=== PATIENT | male | born 1940 | race Caucasian/White ===

== ENCOUNTER 2019-12-30 18:44 | Observation (INO) | payer MEDICARE, SELFPAY ==
--- NOTE | ~2019-12-30 | XR_ITS ---
EXAMINATION: XR UGI w small bowel DATE: 01/01/2020 10:32 INDICATION: Abdominal pain. Small bowel thickening on outside institution CT. TECHNIQUE: The patient drank thick barium, gas-producing crystals, and thin barium. Conventional supi ne abdomen radiographs and fluoroscopic spot radiographs of the esophagus, stomach, and proximal smal l bowel were obtained. Additional overhead radiographs were obtained during the transit through the s mall bowel. Spot fluoroscopic images of the small bowel were obtained upon contrast reaching the cec um. Fluoroscopy exposure time was 0.8 minutes. A total of 678 fluoroscopic images and 6 overhead radi ographs were obtained. COMPARISON: None. FINDINGS: The esophagus is normal without mass or stricture. Esophageal motility is normal. Postoperative rodriges e of prior partial gastrectomy. There is no hiatal hernia. Prompt emptying across the gastrojejunal a nastomosis. There was no gastroesophageal reflux with provocative maneuvers. Transit time from the st omach to proximal colon was approximately 2 hours. There is normal caliber and mucosal fold pattern t hroughout the small bowel. Terminal ileum is normal. IMPRESSION: 1. Postoperative change of prior partial gastrectomy. 2. Normal small bowel follow-through with normal mucosal fold pattern. Reviewed, dictated and finalized at location A.
--- NOTE | 2019-12-30 18:59 | ADMGEN ---
This patient, Boston Wolf, was admitted to 2 Medical Room 240-01. Patient/family oriented to hospital policies and general routines including ID bracelet, bed and alarms, visiting hours, pain management, procedures, bathroom and other care routines, personal items, smoking policy, room service/diet, and visiting hours. Valuables list has been completed. Information on how to activate the Rapid Response Team has been discussed. Patient/Family are encouraged to report perceived risks to care and to ask questions if they do not understand what they are told or what they should do.
[2019-12-30 19:26] VITALS: BMI 22.1
[2019-12-30 19:27] VITALS: BP 137/62; PULSE 115; RESP 28; TEMP 37.4; O2SAT 100
[2019-12-30 22:00] VITALS: BP 140/51; PULSE 98; RESP 22; TEMP 37; O2SAT 99
[2019-12-31] VITALS (8 sets, daily range): BP systolic 114–135; BP diastolic 55–59; PULSE 76–98; RESP 14–18; TEMP 36.4–37.1; O2SAT 93–99
--- NOTE | 2019-12-31 03:55 | PM.IMHP ---
H&P: HPI History of Present Illness Chief complaint: Abdominal pain Narrative: Date and time of patient contact: 12/31/2019 at 3:00 a.m. Boston Wolf is a 78 year old male with a past medical history of hypertension, chronic tobacco abuse and emphysema who presented to the ER at [facility] in [place] due to severe abdominal pain. The patient reports that the pain occurred approximately 30 minutes after he had eaten. The pain was generalized and radiated down to his testicles bilaterally. However the pain was worse in the left periumbilical region. He required 2 doses of Dilaudid and a dose of fentanyl at the outside facility prior to relief of symptoms. His pain was a 10/10 in intensity and aching in nature. He had never had pain like this before. It was not accompanied by any nausea, vomiting or changes in bowel habits. He had not been having any fevers or chills per his report. His temperature at the outside facility was 100.1. He does have a chronic smoker's cough with a slight increase in his cough due to postnasal drip. He denies any increased shortness of breath from baseline. He has not had any recent ill contacts to his knowledge. 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 The patient denies any symptoms of claudication or cold extremities. He was noted to have some mild renal failure on outside labs with a creatinine of 1.8. He denies any history of renal failure. He denies a history of BPH but does get up every 2 hours to urinate at night. He denies any weak stream or decreased urine output. He has not noticed any dark urine or hematuria. Currently is abdominal pain is 0/10 in intensity and LEs is abdomen is palpated. He is still having some moderate tenderness to palpation in the left periumbilical region and left lower abdomen. Review of Systems Review of Systems: Narrative: 12 systems were reviewed with pertinent positives and negatives per HPI. Except as documented in the HPI, all other systems were reviewed and are negative. [facility] Past Medical History Medical History (Updated 12/31/19 @ 05:12 by Inez Brewer DO) Emphysema lung Essential hypertension Gastric ulcer 1977 Right cataract Maturing Tobacco abuse disorder Surgical History Surgical History (Updated 12/31/19 @ 05:04 by Inez Brewer DO) History of appendectomy History of colonoscopy with polypectomy March 2018 History of left cataract extraction History of partial gastrectomy 1977 due to gastric ulcer Leg fracture, right approx 2010: ORIF Family History Family History (Updated 12/31/19 @ 05:05 by Inez Brewer DO) Sibling Rectal cancer sister Father Alcoholism Sibling , His brother had coronary artery disease and of complications of treatment of post coronary artery disease resulting in liver and kidney failure. Acute myocardial infarction Heart disease Kidney failure Liver failure Social History Social History (Updated 12/31/19 @ 05:10 by Inez Brewer DO) Social History: He has 8 siblings. Six of his siblings are still alive any reports there and relatively good health. He had a sister who of rectal cancer brother who of coronary artery disease leading to liver and kidney failure. Primary care physician: Dr. Sunny Mcgovern Code status: When asked about code status the patient stated, ?Do whatever you think is correct.? Subsequently the patient has been placed as a full code. Smoking packs per day: 1 Smoking cigarettes per day: 20.0 Year
[2019-12-31] MEDS: SODIUM CHLORIDE 0.9% IV 1,000 ML 999 ML IV CONT (04:19)
[2019-12-31 04:37] LABS: Basophils Percent Auto 0.2 % (0.2-1.2); Eosinophils Absolute Auto 0.1 K/mm3 (0-0.3); Eosinophils Percent Auto 0.5 % (0-4.4); Hematocrit 31.4 % (42.0-52.0); Hemoglobin 10.1 g/dL (14.0-18.0); Immature Granulocyte Percent A 0.6 % (0-0.5); Lymphocytes Absolute Auto 1.18 K/mm3 (0.9-3.2); Lymphocytes Percent Auto 7.1 % (18.3-44.2); Mean Corpuscular HGB Conc 32.2 g/dl (32-36); Mean Corpuscular Hemoglobin 28.9 pg (26-34); Mean Corpuscular Volume 89.7 fl (80-100); Mean Platelet Volume 10.1 fl (7.4-10.4); Monocytes Percent Auto 5.9 % (2.6-8.5); Neutrophils Absolute Auto 14.4 K/mm3 (1.3-6.7); Neutrophils Percent Auto 85.7 % (45.5-73.1); Platelet Count Result 246 k/mm3 (150-375); Red Cell Distribution Width 15.3 % (11.5-14.5); White Blood Count 16.7 K/mm3 (4.5-10.0)
[2019-12-31 04:48] LABS: Alanine Aminotransferase 11 U/L (4-50); Albumin Level 2.8 g/dL (3.5-5.1); Alkaline Phosphatase 51 U/L (38-126); Aspartate Amino Transferase 13 U/L (17-59); Bilirubin,Total 0.3 mg/dL (0.2-1.3); Blood Urea Nitrogen 31 mg/dL (9-20); Calcium 7.6 mg/dL (8.4-10.2); Carbon Dioxide 23 mmol/L (22-30); Chloride 109 mmol/L (98-107); Estimated CRCL calculation 43 ml/min; Estimated Glomerular Filt Rate 54; Glucose 101 mg/dL (75-110); Potassium 4.5 mmol/L (3.4-5.0); Sodium 135 mmol/L (137-145)
[2019-12-31 04:49] LABS: Lactic Acid Reflex 0.8 mmol/L (0.7-2.1)
[2019-12-31] MEDS: SODIUM CHLORIDE 0.9% IV 1,000 ML 125 ML IV CONT ×2 (05:13→13:29)
[2019-12-31 06:27] LABS: Add Urine Microscopic? NO; Appearance Urine Clear (Clear); Bilirubin Urine Negative (Negative); Blood Urine Negative (Negative); Color Urine Yellow (Yellow); Glucose Urine UA Negative (Negative); Ketones Urine Negative (Negative); Leukocyte Esterase Ur Negative LEU/UL (Negative); Nitrate Urine Negative (Negative); Protein Urine Negative (Negative); Specific Grav Ur 1.021 (1.001-1.035); Urobilinogen Urine Negative mg/dL (<2.0)
[2019-12-31] MEDS: ALBUTEROL SULFATE NEB 2.5 MG/0.5 ML INH 5 MG INHALATION ×3 (08:48→20:15)
[2019-12-31] MEDS: AMLODIPINE BESYLATE 2.5 MG TABLET PO (09:41)
[2019-12-31] MEDS: IPRATROPIUM BR 0.02% INH SOLN 0.5 MG/2.5 ML VIAL INHALATION ×2 (14:11→20:15)
--- NOTE | 2019-12-31 15:25 | PM.CNGS ---
Assessment and Plan Assessment and plan (1) Generalized abdominal pain: Code(s): R10.84 - Generalized abdominal pain Status: Acute Assessment and Plan: CT scan report reviewed from outlying facility (no disc available or imaging available at this time) and discussed in detail with the patient. Findings of chronic MOSES occlusion and nonspecific mild small bowel wall thickening in a few non-dilated loops of small bowel. No pneumatosis. Patient's abdominal pain has completely resolved. Still an unclear etiology for his pain. Abdominal exam benign, WBC trending down, lactic acid normal. No indication for surgical intervention at this time. Will continue to closely monitor with serial abdominal exams and labs. Thank you for allowing us to see the patient consultation we will continue to follow along with you. (2) Abnormal CT of the abdomen: Code(s): R93.5 - Abnormal findings on diagnostic imaging of other abdominal regions, including retroperitoneum Status: Acute Assessment and Plan: See plan above. (3) PVD (peripheral vascular disease): Code(s): I73.9 - Peripheral vascular disease, unspecified Status: Acute (4) Emphysema lung: Code(s): J43.9 - Emphysema, unspecified Status: Acute (5) Hypertension: Code(s): I10 - Essential (primary) hypertension Status: Acute Additional Plan Discussed the patient's case and plan of care with Dr. Huston. History of Present Illness Consult details Consult date: 12/31/19 Reason for consult: abdominal pain Requesting physician: Tr Bowling MD Narrative: This is a 78-year-old male with a history of hypertension, emphysema, peripheral vascular disease, who presented to [facility] in [place], [place] yesterday for evaluation of abdominal pain. The patient reports a sudden onset of acute abdominal pain about 30 minutes after eating breakfast yesterday morning. He states the pain was severe and ?took him to the floor? due to the severity of the pain. Denies any associated nausea, vomiting, fever or chills. No other associated symptoms. He states the pain was severe enough that he presented directly to the emergency department[place] [address], lactic acid of 1.9 and serial lactic acid of 1.3, and creatinine of 1.8. D-dimer was elevated at 4400. CTA of the chest abdomen and pelvis was performed and showed a few non-diagnostic loops of small bowel without dilation with diffuse mild wall thickening, complete chronic occlusion of the MOSES, severe emphysematous changes with significant lung volume loss, and incidentally found was bilateral external iliac artery occlusion. No evidence of pneumatosis. The patient was having a significant amount of abdominal pain and was diffusely tender on exam. The patient was evaluated by General surgery services at [place] and there was concern for mesenteric ischemia. Due to this, the patient was transferred to our facility and admitted to the hospitalist service. Our service was consulted for the concerns of mesenteric ischemia. Labs repeated at [facility] and [place] [address], lactic acid 0.8, creatinine normal, and other labs unremarkable. The patient is now being seen on medical floor. He denies any abdominal pain at this time. Denies nausea or vomiting. Reports passing gas today with his last bowel movement this morning that was normal for him. He has no other complaints. Denies a history of this abdominal pain in the past. Does have a history of a gastric ulcer 1977 when he was taken for a partial gastrectomy. Review of Systems Constitutional: Constitutional: Reports as per HPI, Denies chills, Denies excessive sweating, Denies fatigue, Denies fever(s), Denies headache(s) and Denies weakness Eyes: Eyes: Denies change in vision and Denies loss of vision ENT: Reports Normal hearing present, [place]
--- NOTE | 2019-12-31 17:45 | PM.IMPN ---
Progress Note: A&P Assessment and Plan (1) Generalized abdominal pain: Code(s): R10.84 - Generalized abdominal pain Status: Acute Assessment and Plan: Given the patient's peripheral vascular disease the outside facility wanted the patient transferred for evaluation by General surgery. General surgery has seen the patient and no specific etiology is evident, ischemia is always possible but not likely The patient's abdominal pain has improved, will obtain small-bowel follow-through. Advance diet and recheck WBC in a.m.. (2) Renal failure: Code(s): N19 - Unspecified kidney failure Status: Acute Assessment and Plan: It was unclear if the patient's renal failure acute on chronic on presentation. However his repeat BMP demonstrates normal creatinine currently. Creatinine elevation may have just been due to dehydration. And continue to follow (3) PVD (peripheral vascular disease): Code(s): I73.9 - Peripheral vascular disease, unspecified Status: Acute Assessment and Plan: The patient does not have a pre-existing diagnosis of peripheral vascular disease. However imaging from outside facility demonstrates significant peripheral vascular disease of both mesenteric and iliac arteries. However this seems to be chronic. The patient would benefit from tobacco cessation. Tobacco cessation education was provided. (4) BPH associated with nocturia: Code(s): N40.1 - Benign prostatic hyperplasia with lower urinary tract symptoms; R35.1 - Nocturia Status: Acute Assessment and Plan: Patient denies any dribbling, decreased urinary stream, or sensation of incomplete emptying. Given resolution of the patient's renal insufficiency obstructive uropathy is less likely. (5) Emphysema lung: Code(s): J43.9 - Emphysema, unspecified Status: Acute Assessment and Plan: Given the patient's frequent cough and markedly decreased breath sounds will give patient an albuterol and Atrovent neb. If patient does not feel a benefit her approve min in symptoms this can be discontinued. Patient is not interested in smoking cessation. (6) Anemia: Code(s): D64.9 - Anemia, unspecified Status: Acute Assessment and Plan: Check iron studies and B12 Subjective Date/time seen: 12/31/19 17:45 Interval history: Date of visit 12/30 78-year-old hypertensive white male admitted with acute onset abdominal pain after being seen in the emergency room at [facility]. There was felt possibly has some ischemic bowel and was transferred here for evaluation. By the time he arrived teary symptoms were subsiding is feeling better. This a.m. he has had bowel movement minimal discomfort but no ongoing symptoms. Previous abdominal surgery but nothing like this with pain recently. Colonoscopy about 2 years ago uneventfull. He has had no weight loss fever chills or other symptomatology Exam Narrative: Exam Narrative: Blood pressure 136/60 pulse 64 saturating 100% room air General: Height weight proportionate with a thin body habitus, no acute distress HEENT: , no scleral icterus, Neck: No JVD, lymphadenopathy Respiratory: Lungs clear, frequent mild nonproductive cough Cardiovascular: Regular rate, regular rhythm, normal S1-S2, 1+ pedal pulses bilaterally, 2+ radial pulses Gastrointestinal: Soft, nondistended, abdomen soft bowel sounds are present no organomegaly, , no rebound tenderness, no guarding Skin: Darkly tanned, non jaundice, Extremities: Normal temperature, well perfused Neurological: Alert and oriented, speech is clear, no facial asymmetry, no localizing neurologic deficits noted Psychiatric: Appropriate mood and affect, pleasant and cooperative Objective Data Vital Signs Vital Signs: Vital Signs - 24 hr 12/30/19 19:27 12/30/19 22:00 12/31/19 05:57 Temperature 37.4 C 37.0 C 37.1 C Pulse Rate 115 H 98 83 Respiratory Rate 2
[2020-01-01] MEDS: ALBUTEROL SULFATE NEB 2.5 MG/0.5 ML INH 5 MG INHALATION ×2 (01:39→07:03)
[2020-01-01] MEDS: IPRATROPIUM BR 0.02% INH SOLN 0.5 MG/2.5 ML VIAL INHALATION ×2 (01:39→07:03)
[2020-01-01 01:40] VITALS: PULSE 77; RESP 18
[2020-01-01 01:50] VITALS: PULSE 81; RESP 18
[2020-01-01] MEDS: SODIUM CHLORIDE 0.9% IV 1,000 ML 70 ML IV CONT (02:16)
[2020-01-01 05:07] VITALS: BP 113/48; PULSE 83; RESP 16; TEMP 36.9; O2SAT 98
[2020-01-01 05:47] LABS: Basophils Percent Auto 0.1 % (0.2-1.2); Eosinophils Absolute Auto 0.2 K/mm3 (0-0.3); Immature Granulocyte Absolute 0.04 K/mm3 (0.00-0.031); Immature Granulocyte Percent A 0.4 % (0-0.5); Lymphocytes Absolute Auto 1.15 K/mm3 (0.9-3.2); Lymphocytes Percent Auto 12.8 % (18.3-44.2); Mean Corpuscular HGB Conc 32.1 g/dl (32-36); Mean Corpuscular Hemoglobin 28.5 pg (26-34); Mean Corpuscular Volume 88.6 fl (80-100); Mean Platelet Volume 10.9 fl (7.4-10.4); Monocytes Absolute Auto 0.8 K/mm3 (0.1-0.6); Monocytes Percent Auto 8.9 % (2.6-8.5); Neutrophils Absolute Auto 6.8 K/mm3 (1.3-6.7); Neutrophils Percent Auto 75.8 % (45.5-73.1); Platelet Count Result 245 k/mm3 (150-375); Red Blood Count 3.16 M/mm3 (4.6-6.20); Red Cell Distribution Width 15.2 % (11.5-14.5)
[2020-01-01 06:17] LABS: Alanine Aminotransferase 11 U/L (4-50); Albumin Level 2.7 g/dL (3.5-5.1); Alkaline Phosphatase 52 U/L (38-126); Aspartate Amino Transferase 17 U/L (17-59); Bilirubin,Total 0.1 mg/dL (0.2-1.3); Blood Urea Nitrogen 16 mg/dL (9-20); Calcium 7.8 mg/dL (8.4-10.2); Carbon Dioxide 22 mmol/L (22-30); Chloride 108 mmol/L (98-107); Estimated CRCL calculation 50 ml/min; Estimated Glomerular Filt Rate > 60; Glucose 90 mg/dL (75-110); Potassium 4.2 mmol/L (3.4-5.0); Sodium 135 mmol/L (137-145)
[2020-01-01 06:31] LABS: Iron 41 ug/dL (49-181)
[2020-01-01 06:41] LABS: Percent Iron Saturation 20 % (20-50)
[2020-01-01 07:04] VITALS: PULSE 78; RESP 18
[2020-01-01 07:09] VITALS: PULSE 78; RESP 18
--- NOTE | 2020-01-01 09:17 | PM.PNGS ---
Progress Note: A&P Assessment and Plan (1) Generalized abdominal pain: Code(s): R10.84 - Generalized abdominal pain Status: Acute Assessment and Plan: exam benign at this time, symptoms have seemingly resolved, await small bowel series, advance diet as tolerated after small-bowel series, would likely benefit from vascular surgery workup, no acute surgical issues - will sign off, call with questions and issues (2) PVD (peripheral vascular disease): Code(s): I73.9 - Peripheral vascular disease, unspecified Status: Acute Assessment and Plan: will likely need a vascular surgery follow-up after discharge (3) Hypertension: Code(s): I10 - Essential (primary) hypertension Status: Acute Assessment and Plan: stable, management per primary team Subjective Subjective Date/Time Seen: 01/01/20 09:17 patient with no complaints, reports of abdominal pain resolved, was tolerating full liquid diet last night without issue Review of Systems Constitutional: Constitutional: Reports fatigue and Reports weakness Cardiovascular: Cardiovascular: Denies chest pain Respiratory: Respiratory: Denies dyspnea Gastrointestinal: Gastrointestinal: Denies abdominal pain, Denies constipation, Denies diarrhea, Denies nausea and Denies vomiting Exam Const: General: no acute distress Resp: Auscultation: clear to auscultation bilaterally Cardio: Rate: regular rate Rhythm: regular rhythm GI: Other: SNTND Objective Data Vital Signs Vital Signs: Vital Signs - 24 hr 12/31/19 14:10 12/31/19 14:11 12/31/19 20:17 Temperature 36.9 C Pulse Rate 76 98 83 Respiratory Rate 14 16 18 Blood Pressure 135/57 L Pulse Oximetry 99 12/31/19 20:27 12/31/19 21:57 01/01/20 01:40 Temperature 36.4 C Pulse Rate 89 90 77 Respiratory Rate 18 16 18 Blood Pressure 126/55 L Pulse Oximetry 97 01/01/20 01:50 01/01/20 05:07 01/01/20 07:04 Temperature 36.9 C Pulse Rate 81 83 78 Respiratory Rate 18 16 18 Blood Pressure 113/48 L Pulse Oximetry 98 01/01/20 07:09 Temperature Pulse Rate 78 Respiratory Rate 18 Blood Pressure Pulse Oximetry Intake/Output Intake/Output: Intake & Output 12/29/19 12/30/19 12/31/19 01/01/20 23:59 23:59 23:59 23:59 Intake Total 415 777 Output Total 825 200 Balance 3328 577 Meds/Results Medications: Active Medications Generic Name Dose Route Start Last Admin Trade Name Kory PRN Reason Stop Dose Admin Acetaminophen 650 mg 12/30/19 19:03 Tylenol Tablet PO Q4H PRN Mild Pain (1-3) or Fever Albuterol 5 mg 12/31/19 08:00 01/01/20 07:03 Albuterol Sulf Neb 2.5mg/0.5ml INHALATION 5 mg Q6HRT LINDEN Administration Amlodipine Besylate 2.5 mg 12/31/19 09:00 12/31/19 09:41 Norvasc PO 2.5 mg DAILY LINDEN Administration Sodium Chloride 1,000 mls @ 70 mls/hr 12/31/19 03:15 01/01/20 02:16 Normal Saline Iv IV CONT 70 mls/hr .[id number] LINDEN Administration Ipratropium [place] 0.5 mg 12/31/19 08:00 01/01/20 07:03 Atrovent Neb INHALATION 0.5 mg Q6HRT LINDEN Administration Labs Labs: Laboratory Results - last 24 hr 01/01/20 01/01/20 01/01/20 04:57 04:57 04:57 WBC 9.0 RBC 3.16 L Hgb 9.0 L Hct 28.0 L MCV 88.6 MCH 28.5 MCHC 32.1 RDW 15.2 H Plt Count 245 MPV 10.9 H Immature Gran % (Auto) 0.4 Neut % (Auto) 75.8 H Lymph % (Auto) 12.8 L [place] % (Auto) 8.9 H Eos % (Auto) 2.0 Baso % (Auto) 0.1 L Lymph # (Auto) 1.15 [place] # (Auto) 0.8 H Eos # (Auto) 0.2 Baso # (Auto) 0.0 Abs Immat Gran (auto) 0.04 H Absolute Neuts (auto) 6.8 H Absolute Nucleated RBC 0.0 Nucleated RBC % 0.0 Sodium 135 L Potassium 4.2 Chloride 108 H Carbon Dioxide 22 BUN 16 D Creatinine 1.10 Estim Creat Clear Calc 50 Estimated GFR > 60 Glucose 90 Calcium 7.8 L Iron 41 L TIBC 207 L % Saturation
[2020-01-01] MEDS: AMLODIPINE BESYLATE 2.5 MG TABLET PO (09:34)
--- NOTE | 2020-01-05 08:56 | PM.DS ---
DS: Admitting Diagnosis Admitting Diagnosis Admitting Diagnosis: Generalized abdominal pain DS: Discharge Diagnosis Discharge Diagnosis (1) Generalized abdominal pain: Code(s): R10.84 - Generalized abdominal pain Status: Acute Assessment and Plan: Given the patient's peripheral vascular disease the outside facility wanted the patient transferred for evaluation by General surgery. General surgery has seen the patient and no specific etiology is evident, ischemia is always possible but not likely The patient's abdominal pain improved, SBF was entirely normal too Advanced diet and repeat WBC normal at 9.0 (2) Renal failure: Code(s): N19 - Unspecified kidney failure Status: Acute Assessment and Plan: It was unclear if the patient's renal failure acute on chronic on presentation. However his repeat BMP demonstrates normal creatinine at 1.1 Creatinine elevation may have just been due to dehydration. And continue to follow (3) PVD (peripheral vascular disease): Code(s): I73.9 - Peripheral vascular disease, unspecified Status: Acute Assessment and Plan: The patient does not have a pre-existing diagnosis of peripheral vascular disease. However imaging from outside facility demonstrates significant peripheral vascular disease of both mesenteric and iliac arteries. However this seems to be chronic. The patient would benefit from tobacco cessation. Tobacco cessation education was provided. (4) BPH associated with nocturia: Code(s): N40.1 - Benign prostatic hyperplasia with lower urinary tract symptoms; R35.1 - Nocturia Status: Acute Assessment and Plan: Patient denies any dribbling, decreased urinary stream, or sensation of incomplete emptying. Given resolution of the patient's renal insufficiency obstructive uropathy is less likely. (5) Emphysema lung: Code(s): J43.9 - Emphysema, unspecified Status: Acute Assessment and Plan: Given the patient's frequent cough and markedly decreased breath sounds will give patient an albuterol and Atrovent neb. If patient does not feel a benefit her approve min in symptoms this can be discontinued. Patient is not interested in smoking cessation. (6) Anemia: Code(s): D64.9 - Anemia, unspecified Status: Acute Assessment and Plan: Iron studies compatible with anemia of chronic disease. B12 level low at 177 and not replaced. will contact PCP had colonoscope within last 2-3 years also DS: Summary Hospital Course Hospital Course: 79 y/o with PVD admitted from outside facility for evaluation by surgery for his abd pain. Ct there small bowel edema with chronic vascular issues. pain subsided before arrival here and did not recur. Wbc normalized. tolerated normal diet. UGI with SBF normal . seen by surgery with no further intervention. follow up with primary anemia of chronic disease by Fe studies but b12 low at 177, again follow up with PCP Time Spent with Patient Time attestation: Total time spent providing and/or coordinating discharge services:35 minutes Exam Narrative: Exam Narrative: condition on discharge bp 136/60 p 64 afebrile lungs clear cv rrr ABd soft non tender extr without edema Discharge Plan Discharge Attending physician on discharge: Tr Bowling Consulting providers: Malena Huston ; Leonardo Moe ; Inez Brewer ; Monique Arellano Discharging Clinician: Tr Bowling Anticipated Discharge Date/Time: 01/01/20 12:55 Patient Disposition: Home, Self-Care Activity: as tolerated Diet: low sodium Patient Instructions: Antibiotic Form, How to Stop Smoking (DC) Stand Alone Forms: General Discharge Information Follow-up/Referrals: Shaniqua,Sunny Ortiz MD [Primary Care Provider] - 2 Weeks Discharge Medications: Continued lisinopril-hydrochlorothiazide 20-12.5 mg tablet 12.5 tablet PO DAILY RF: 0 amlodipine 2
== END 2020-01-01 11:04 | disposition home or self-care (01) ==
PROVIDERS: Internal Medicine; Admitting Provider Internal Medicine; PCP Internal Medicine; Visit Provider Internal Medicine
DX: R10.84 Generalized abdominal pain (principal); N19 Unspecified kidney failure; I73.9 Peripheral vascular disease, unspecified; R93.5 Abnormal findings on diagnostic imaging of other abdominal regions, including retroperitoneum; N40.1 Benign prostatic hyperplasia with lower urinary tract symptoms; R35.1 Nocturia; J43.9 Emphysema, unspecified; D64.9 Anemia, unspecified; F17.210 Nicotine dependence, cigarettes, uncomplicated; I10 Essential (primary) hypertension; H26.9 Unspecified cataract; Z98.42 Cataract extraction status, left eye; Z79.899 Other long term (current) drug therapy; Z86.010 Personal history of colon polyps; Z87.11 Personal history of peptic ulcer disease; Z90.3 Acquired absence of stomach [part of]
CPT/HCPCS: 36415; 74240; 74248; 80053; 81003; 82607; 83540; 83550; 83605; 85025; 94640; 96360; 96361; A9270; G0378; G0379; J7030